=== PATIENT | female | born 2000 | race Caucasian/White ===

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

== ENCOUNTER 2019-01-08 23:14 | Emergency (ER) | payer MEDICAID ==
[~2019-01-08] VITALS: Ht 167.6 cm; Wt 54.9 kg
[2019-01-08 23:48] VITALS: Ht 167.6 cm; Wt 54.9 kg
[2019-01-09 03:47] VITALS: BP 124/76
== END 2019-01-09 03:47 | disposition home or self-care (01) ==
LOC: ED 23:14
DX: J32.9 Chronic sinusitis, unspecified (principal)